=== PATIENT | female | born 1975 | race Caucasian/White ===

== ENCOUNTER → 2023-05-23 06:27 | Day surgery (SDC) | payer BC, SELFPAY | LOC: GI 06:27 | PROVIDERS: ATTENDING PHYSICIAN Internal Medicine Gastroenterology | DX: Z12.11 Encounter for screening for malignant neoplasm of colon (principal); K63.5 Polyp of colon; R10.12 Left upper quadrant pain; R63.4 Abnormal weight loss | CPT/HCPCS: 45385; 43235; 88305 ==

== ENCOUNTER → 2023-06-03 08:28 | Outpatient (REF) | payer BC, SELFPAY | LOC: HWRAD 08:28 | PROVIDERS: ATTENDING PHYSICIAN Internal Medicine Endocrinology, Diabetes & Metabolism; FAMILY PHYSICIAN Family Medicine | DX: E05.90 Thyrotoxicosis, unspecified without thyrotoxic crisis or storm (principal) | CPT/HCPCS: 76536 ==

== ENCOUNTER 2023-07-05 06:14 | Day surgery (SDC) | payer BC, SELFPAY ==
[2023-06-30 08:08] VITALS: BMI 25.3
[2023-06-30 08:58] LABS: Hematocrit 39.5 % (37.0-47.0); Hemoglobin 13.4 g/dL (12.0-16.0); Mean Corp Hgb Conc. 33.9 g/dL (33.0-37.0); Mean Corpuscular Hgb 29.6 pg (27.0-31.0); Mean Corpuscular Volume 87.4 fL (81.0-99.0); Mean Platelet Volume 9.5 fL (7.4-10.4); Platelet Count 367 10^3/uL (130-400); Red Blood Cell Count 4.52 10^6/uL (4.20-5.40); Red Cell Dist. Width 12.5 % (11.5-14.5); White Blood Cell Count 7.8 10^3/uL (4.8-10.8)
[2023-06-30 09:18] LABS: APTT 27.7 Sec (23.4-35.0); INR 1.07
[2023-06-30 09:40] LABS: ALT (SGPT) 24 U/L (0-35); AST (SGOT) 19 U/L (14-36); Albumin 4.2 g/dl (3.5-5.0); Alkaline Phosphatase 86 U/L (38-126); Blood Urea Nitrogen 14 mg/dl (7-17); Calcium 9.8 mg/dl (8.4-10.2); Carbon Dioxide 24 mmol/L (22-30); Chloride 108 mmol/L (98-107); Estimated Creatinine Clearance 95 ml/min; Glucose 96 mg/dl (70-99); Potassium 4.6 mmol/L (3.5-5.1); Sodium 138 mmol/L (135-145); Total Bilirubin 1.6 mg/dl (0.2-1.3); Total Protein 7.2 g/dl (6.3-8.2); eGFR > 60.00
[2023-07-05 08:50] VITALS: BP 124/83
[2023-07-05] MEDS: NORMOSOL-R 1000 IV (09:07)
[2023-07-05] MEDS: HEPARIN 5000 UNITS SC (09:08)
[2023-07-05] MEDS: TYLENOL 1000 MG PO (09:08)
--- NOTE | 2023-07-05 09:25 | PTCARENOTE ---
Patient verbally shared with RN that she lost her 1 year ago. Support was provided as the patient was tearful. Warm blankets and tissues were provided to the patient. RN provided patient with names and phone numbers for grief support groups
in the community. [facility] Nursery Worker was made aware. Patient thanked her nurse for the information.
[2023-07-05 11:40] VITALS: BP 124/83; BP 139/88
--- NOTE | 2023-07-05 11:55 | OR.RPT ---
Operative Report
Operative Report
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
POSTOPERATIVE DIAGNOSIS: Same
SURGEON: Greg Cheung M.D.
OPERATION: �Total Thyroidectomy - 53187
ANESTHESIA: GET
ESTIMATED BLOOD LOSS: 3 cc
DRAINS: None
SPECIMEN: �total thyroid
FINDINGS: multinodular goiter
COMPLICATIONS:�None
PROCEDURE:
The patient was taken to the operating room and placed in the usual supine position. After adequate general endotracheal anesthesia was established, the patient�s neck was extended, prepped, and draped in the typical sterile fashion. A 4 cm
transcervical incision was made two fingerbreadths above the sternal notch. The skin incision was made with the #15 blade, which was taken through the skin into the subcutaneous tissue. The underlying platysma muscle was divided, and subplatysmal
flaps were created superiorly to the thyroid cartilage and inferiorly to the sternal notch. Strap muscles were identified and at the midline.
Attention was turned to the patient�s right thyroid lobe. The right thyroid lobe was mobilized medially. During this process, the right middle thyroid vein and inferior thyroid artery were dissected and ligated with Ligasure. Next, the right
superior pole was taken down by dissecting and transecting the superior pole vessels with a Ligasure. The right thyroid lobe was mobilized medially. During this process, the right recurrent laryngeal nerve was identified and preserved throughout its
entire course. The right superior and inferior parathyroid glands were identified. The right inferior parathyroid appeared to be healthy and viable. The right superior parathyroid gland was removed during the dissection. Thus, it was minced and
autotransplant in the right SCM muscle. The right thyroid lobe with isthmus was resected off the trachea and sent to the pathology department.
Attention was turned to the patient�s left thyroid lobe. The left thyroid lobe was mobilized medially. During this process, the left middle thyroid vein and inferior thyroid artery were dissected and ligated with Ligasure. Next, the left superior
pole was taken down by dissecting and transecting the superior pole vessels with a Ligasure. The left thyroid lobe was mobilized medially. During this process, the left recurrent laryngeal nerve was identified and preserved throughout its entire
course. The left superior and inferior parathyroid glands were identified and preserved. The left thyroid lobe with isthmus was resected off the trachea and sent to the pathology department.
After obtaining adequate hemostasis, the strap muscle was approximated with #3-0 Vicryl in a running fashion, and platysma muscles were reapproximated with #3-0 Vicryl in an interrupted fashion, and the skin was approximated with #4-0 Monocryl in a
running subcuticular fashion. Steri-strips and sterile dressings were placed. The patient tolerated the procedure well. The final instrument, needle, and sponge counts were correct.
[2023-07-05] MEDS: DILAUDID 0.25 MG IV (12:14)
[2023-07-05 12:39] VITALS: BP 127/82
[2023-07-05 12:56] VITALS: BP 129/86
[2023-07-05 13:12] VITALS: BP 125/85
== END 2023-07-05 13:29 | disposition home or self-care (01) ==
LOC: SDS 06:14
PROVIDERS: ATTENDING PHYSICIAN Surgery; FAMILY PHYSICIAN Family Medicine; OTHER PHYSICIAN Internal Medicine Endocrinology, Diabetes & Metabolism
DX: E05.20 Thyrotoxicosis with toxic multinodular goiter without thyrotoxic crisis or storm (principal)
CPT/HCPCS: 60240; 88307; 88311; 36415; 80053; 85027; 85610; 85730; 93005

== ENCOUNTER 2023-08-16 06:52 | Day surgery (SDC) | payer BC, SELFPAY ==
[2023-08-16] VITALS (10 sets, daily range): BP systolic 92–128; BP diastolic 57–82; BMI 33.5
[2023-08-16] MEDS: NORMOSOL-R 1000 IV ×2 (12:22→20:54)
[2023-08-16] MEDS: Pyridium 200 MG PO (12:28)
[2023-08-16] MEDS: HEPARIN 5000 UNITS SC (13:39)
--- NOTE | 2023-08-16 17:42 | W.SUR.POST ---
Surgical Immediate Post Op
Note
Pre Op Diagnosis: Pelvic organ prolapse and stress incontinence
Post Op Diagnosis: Pelvic organ prolapse, stress incontinence and endometriosis
Procedure Performed: Robotic total hysterectomy, Bilateral salpingecotmy, sacrocolpopexy, excision of endometriosis, posterior colporrhaphy, retropubic midurethral sling, cystoscopy
Primary Surgeon: Wyatt Roca MD
Secondary Surgeons: Liss Duvall PA-C
The assistance of Liss Duvall was required due to the complexity of the procedure. During the procedure Liss Duvall assisted with retraction, resection, and closure of the wound.
Anesthesia: General with ET tube
Estimated Blood Loss: 100cc
Drains/Shunts: Willis Catheter
Specimens/Cultures: none
Doppler/Duplex/Angio (Y/N): N
Complications: None
[2023-08-16] MEDS: ZOFRAN 4 MG IV (18:00)
[2023-08-16] MEDS: DILAUDID 0.25 MG IV ×2 (18:13→18:47)
[2023-08-16] MEDS: COLACE 100 MG PO (20:53)
[2023-08-16] MEDS: TORADOL 15 MG IV (20:54)
[2023-08-16] MEDS: ROXICODONE 2.5 MG PO (22:28)
[2023-08-17] MEDS: TORADOL 15 MG IV ×2 (02:14→08:11)
[2023-08-17] MEDS: ROXICODONE 5 MG PO ×2 (02:26→09:39)
[2023-08-17 03:32] VITALS: BP 120/62
[2023-08-17] MEDS: NORMOSOL-R 1000 IV (04:21)
[2023-08-17] MEDS: SYNTHROID 88 MCG PO (05:18)
[2023-08-17 05:20] LABS: Hemoglobin 11.8 g/dL (12.0-16.0); Mean Corp Hgb Conc. 33.7 g/dL (33.0-37.0); Mean Corpuscular Hgb 30.1 pg (27.0-31.0); Mean Corpuscular Volume 89.3 fL (81.0-99.0); Mean Platelet Volume 9.4 fL (7.4-10.4); Platelet Count 323 10^3/uL (130-400); Red Blood Cell Count 3.92 10^6/uL (4.20-5.40); Red Cell Dist. Width 12.8 % (11.5-14.5)
[2023-08-17 05:45] LABS: Blood Urea Nitrogen 12 mg/dl (7-17); Carbon Dioxide 26 mmol/L (22-30); Chloride 106 mmol/L (98-107); Estimated Creatinine Clearance 99 ml/min; Potassium 4.9 mmol/L (3.5-5.1); Sodium 136 mmol/L (135-145)
--- NOTE | 2023-08-17 05:51 | PTCARENOTE ---
Pt only able to tolerate 120ml NSS when placed in celestin before removal, able to void within 10 min approx 100ML PVR for 0. Pt had small amount of vaginal bleeding overnight, pain manageable with PRN medications, resting comfortably in bed at this
time.
[2023-08-17 07:00] VITALS: BP 131/75
--- NOTE | 2023-08-17 07:45 | W.PN.GYN ---
Today's Communication / Plan
-
d/c home today
Physician Note
-
Assessment and plan:
48 yo woman POD 1 s/p robotic TLH, bilateral salpingectomy, excision of endometriosis, sacrocolpopexy, posterior repair and retropubic sling: doing well and meeting postoperative milestones.
Postoperative Care:
-hep lock iv
-regular diet
-dvt ppx: lovenox, ambulation, scds
-cbc: WNL
-bmp: WNL
-uop: adequate
-tov: patient voiding
Dispo
-d/c home
Subjective:
no acute complaints. pain well controlled. tolerating diet. ambulating to bathroom.
Objective:
Lab Results
08/17/23 04:39
08/17/23 04:39
Intake and Output
08/15/23 08/16/23 08/17/23 08/18/23
06:59 06:59 06:59 06:59
Intake Total 2059
Output Total 1799 250 / 250
Balance 260 / 10 -250 / -250
Intake:
Oral fluids 1560 / 1560
IV fluids (Total) 500 / 500
normosol 500 / 500
Output:
Urine, Willis 1800 / 1800
Urine, Voided 250 / 250
Vital Signs
Temp Pulse Resp BP Pulse Ox
97.8 F 67 17 131/75 97
08/17/23 07:00 08/17/23 07:00 08/17/23 07:00 08/17/23 07:00 08/17/23 07:00
Exam
Abdomen: soft, nondistended, nontender
Incision: clean, dry, intact
: minimal spotting on pad
[2023-08-17] MEDS: COLACE 100 MG PO (08:11)
--- NOTE | 2023-08-17 12:58 | CM ---
Patient initial assessment deferred as patient discharged prior to assesment completion. Per MD and RN, . Home with no additional skilled needs. Patient arranged for transport home.
== END 2023-08-17 10:30 | disposition home or self-care (01) ==
LOC: SDS 06:52
PROVIDERS: ATTENDING PHYSICIAN Obstetrics & Gynecology
DX: N81.2 Incomplete uterovaginal prolapse (principal); N39.3 Stress incontinence (female) (male); N80.00 Endometriosis of the uterus, unspecified; D25.9 Leiomyoma of uterus, unspecified
CPT/HCPCS: 57425; 58571; 57250; 57288; 58662; 88305; 80051; 82565; 84520; 85027; 86850; 86900; 86901; 88341; 88342; 88360; C1763; C1771

== ENCOUNTER 2023-09-21 13:36 | Emergency (ER) | payer BC, SELFPAY ==
[2023-09-21 13:39] VITALS: BP 133/80
[2023-09-21 13:41] LABS: Glucose - Point of Care 140 mg/dl (70-99)
[2023-09-21 14:53] VITALS: BMI 24.9
[2023-09-21 15:12] LABS: % Basophils 0.4 % (0-2); % Eosinophils 2.5 % (0-6); % Immature Granulocytes 0.3 % (0-0.5); % Lymphocytes 31.4 % (20.5-51.1); % Monocytes 8.2 % (1.7-9.3); % Neutrophils 57.2 % (42.2-75.2); Absolute Eosinophils 0.2 10^3/uL (0-0.7); Absolute Lymphocytes 2.2 10^3/uL (1.2-3.4); Absolute Monocytes 0.6 10^3/uL (0.1-0.6); Absolute Neutrophils 4.1 10^3/uL (1.4-6.5); Hematocrit 38.5 % (37.0-47.0); Mean Corp Hgb Conc. 33.8 g/dL (33.0-37.0); Mean Corpuscular Hgb 29.7 pg (27.0-31.0); Mean Corpuscular Volume 87.9 fL (81.0-99.0); Mean Platelet Volume 9.4 fL (7.4-10.4); Nucleated Red Blood Cells % 0 %; Platelet Count 317 10^3/uL (130-400); Red Blood Cell Count 4.38 10^6/uL (4.20-5.40); Red Cell Dist. Width 12.2 % (11.5-14.5); White Blood Cell Count 7.1 10^3/uL (4.8-10.8)
[2023-09-21 15:28] LABS: ALT (SGPT) 13 U/L (0-35); AST (SGOT) 15 U/L (14-36); Alkaline Phosphatase 76 U/L (38-126); Blood Urea Nitrogen 12 mg/dl (7-17); Calcium 9.8 mg/dl (8.4-10.2); Carbon Dioxide 28 mmol/L (22-30); Chloride 109 mmol/L (98-107); Estimated Creatinine Clearance 95 ml/min; Glucose 92 mg/dl (70-99); Potassium 4.1 mmol/L (3.5-5.1); Sodium 144 mmol/L (135-145); Total Bilirubin 1.2 mg/dl (0.2-1.3); eGFR > 60.00
--- NOTE | 2023-09-21 16:34 | ED.GENMED ---
History of Present Illness
General
Chief Complaint: Numbness
Source: patient
Exam Limitations: none
Time Seen by Provider: 09/21/23 14:07
Travel History
Have you had any contact with someone who has COVID-19?: No
Do you have any symptoms of coronavirus? Fever > 100 degrees, chills, cough, shortness of breath, sore throat, loss of taste or smell, muscle aches, or headache?: No
History of Present Illness
History of Present Illness:
48-year-old female presents with tingling in her legs from just above her knee down to her toes. She has had some tingling around her knees but now seems more constant and a little bit more diffuse. No motor weakness. Denies vomiting. No skin
discoloration. Patient did recently have a hysterectomy and bladder sling. No fevers. No abdominal pain. No bowel or bladder incontinence or urinary changes. She actually states little bit more difficult to urinate because of the bladder sling
but was told active by her surgeon
Past History
Past History
ED Past Medical History: Other (Pancreatitis, pancreatitis, previous smoker)
ED Past Surgical History: Cholecystectomy and Gynecological
Social History
Tobacco: Former smoker
Alcohol: None
Drug: None
Personal:
Living: with family
Employment: Not employed
Family History
Family History: Other
Phy Exam
Physical Exam
Physical Exam:
CONSTITUTIONAL Patient alert and oriented to person, place and time. Well-appearing. Vital signs reviewed.
HEAD atraumatic, normocephalic.
EYES eyelids normal to inspection, Pupils equally round and reactive to light, Extraocular muscles intact, Conjunctiva normal, Sclera normal.
NECK normal range of motion, Trachea midline, no jugular venous distention.
RESPIRATORY CHEST No respiratory distress noted, Chest expansion equal, Bilateral breath sounds clear.
CARDIOVASCULAR regular rate and rhythm, Heart sounds normal.
ABDOMEN abdomen nontender, Bowel sounds normal. No distention.
BACK normal inspection, no obvious deformities
UPPER EXTREMITY range of motion normal, Motor strength normal, no cyanosis, no edema.
LOWER EXTREMITY range of motion normal, Motor strength normal, no cyanosis, no edema. Normal bilateral DP pulses. Normal bilateral PT pulses. Normal [id number]. No motor weakness. Skin is normal. Gross touch normal
NEURO Speech normal, No focal motor deficits, Clint coma scale 15, Memory normal, Cranial Nerves intact to screening exam.
SKIN skin warm, dry, and normal in color.
PSYCHIATRIC patient oriented to person place and time, Normal affect.
Course
Orders/Labs/Results
Orders:
Orders
09/21/23 14:43
Complete Blood Count/With Diff Urgent
Comprehensive Metabolic Panel Urgent
Abnormal Lab Results
09/21/23 09/21/23
13:40 14:43
Chloride 109 H mmol/L
(98-107)
POC Glucose 140 H mg/dl
(70-99)
09/21/23 14:43
09/21/23 14:43
Vital Signs
Initial and Last Documented VS:
Initial Vital Signs
Temp Pulse Resp BP Pulse Ox
98.3 F 75 18 133/80 97
09/21/23 13:39 09/21/23 13:39 09/21/23 13:39 09/21/23 13:39 09/21/23 13:39
Last Documented Vital Signs
Temp Pulse Resp BP Pulse Ox
98.3 F 75 18 133/80 97
09/21/23 13:39 09/21/23 13:39 09/21/23 13:39 09/21/23 13:39 09/21/23 13:39
MDM/Problems Addressed
MDM/Problems Addressed:
Sensory changes
*Pulse Oximetry
Patient hypoxic: no
*Critical Care Note
Total Time (30-74mins, 75-104mins- exclusive of procedures): Not Applicable
Data Reviewed
Source: patient
Further Testing Considered But Not Given:
Consider head CT but symptoms are bilateral and only in the lower extremities.
Patient Management
Escalation/DeEscalation of care consider admission/obs:
Patient is had sensory change for some time and has progressed. Certainly there is some concern and worry that MS is still on the differential diagnosis. Her labs are normal. No indication for ED imaging but will need outpatient MRI of the brain
and possibly spine. Okay for discharge outpatient follow with neurology
ED Attending Note
-
Portions of this chart may have been created with voice recognition software.� Occasional wrong word or��sound alike� substitutions may have occurred due to the inherent limitations of voice recognition software.
Discharge Plan
Departure
Patient Disposition: Home (Routine Discharge)
Date of Disposition: 09/21/23
Time of Disposition: 16:38
Patient with high blood pressure during this ER visit?: No
Discharge Problem:
Tingling in extremities
Instructions: Paresthesia (DC)
Prescriptions:
No Action
lorazepam [Ativan] 0.5 mg Tablet
0.5 mg PO PRN PRN (Reason: anxiety)
ibuprofen [Advil] 200 mg Tablet
400 mg PO PRN PRN (Reason: pain)
levothyroxine 88 mcg Tablet
88 mcg PO DAILY
Ginkoba
1 tab PO DAILY
Nutrifol
1 tab PO DAILY
Vitamin D3
1 tab PO DAILY
acetaminophen 325 mg Tablet
650 mg PO SDS-Q4HPRN PRN (Reason: mild pain) Qty: 60 0RF
docusate sodium 100 mg Capsule
100 mg PO BID Qty: 60 0RF
simethicone 80 mg Tablet,Chewable
80 mg PO Q6HPRN PRN (Reason: gas distention) Qty: 20 0RF
oxycodone 5 mg Tablet
5 mg PO SDS-Q4HPRN PRN (Reason: moderate pain) Qty: 10 0RF
Referrals:
Michela Alvarez DO [Active] -
Albaro Short Jr., [Family Provider] -
Activity Restrictions/Additional Instructions:
Please see your doctor and neurology in the next 1 week for follow-up and reevaluation. Further testing should include an MRI of your brain and possibly an MRI of your spine. Return immediately for worsening symptoms, motor weakness, fevers or any
other concerns.
Interventions
Interventions:
*Risk Screen - Suicide Last Done: 09/21/23 13:39
*General Assessment Last Done: 09/21/23 13:39
*Neglect/Abuse Screening Last Done: 09/21/23 13:39
ED- Fall Risk Assessment Last Done: 09/21/23 14:54
*ED COVID-19 Vaccine History Last Done: 09/21/23 14:54
ED- Neurological Assessment Last Done: 09/21/23 14:54
Discharge Date and Time
Print Language: ARGENTINE
[2023-09-21 17:41] VITALS: BP 131/78
== END 2023-09-21 17:45 | disposition home or self-care (01) ==
LOC: EMR 13:36
PROVIDERS: EMERGENCY PHYSICIAN Emergency Medicine; FAMILY PHYSICIAN Family Medicine
DX: R20.2 Paresthesia of skin (principal); Z87.891 Personal history of nicotine dependence
CPT/HCPCS: 99283; 80053; 82962; 85025

== ENCOUNTER 2023-09-23 00:39 | Emergency (ER) | payer BC, SELFPAY ==
[2023-09-23 00:43] VITALS: BP 147/93
[2023-09-23 01:12] VITALS: BP 124/81
[2023-09-23 01:13] VITALS: BMI 24.7
--- NOTE | 2023-09-23 01:42 | ED.GENMED ---
History of Present Illness
General
Chief Complaint: Numbness
Source: patient
Exam Limitations: none
Time Seen by Provider: 09/23/23 01:23
Travel History
Have you had any contact with someone who has COVID-19?: No
Do you have any symptoms of coronavirus? Fever > 100 degrees, chills, cough, shortness of breath, sore throat, loss of taste or smell, muscle aches, or headache?: No
History of Present Illness
History of Present Illness:
See MDM
Past History
Past History
ED Past Medical History: Other (Pancreatitis, pancreatitis, previous smoker)
ED Past Surgical History: Cholecystectomy and Gynecological
Social History
Tobacco: Former smoker
Alcohol: None
Drug: None
Personal:
Living: with family
Employment: Not employed
Family History
Family History: Other
Phy Exam
Physical Exam
Physical Exam:
See MDM
Course
Orders/Labs/Results
Orders:
Orders
09/23/23 01:42
CT Head W/o Iv Contrast Urgent
Comment:
Reason For Exam: Generalized numbness and tingling
Lorazepam [Ativan] 1 mg PO NOW STA
Vital Signs
Initial and Last Documented VS:
Initial Vital Signs
Temp Pulse Resp BP Pulse Ox
99.7 F 77 16 147/93 97
09/23/23 00:43 09/23/23 00:43 09/23/23 00:43 09/23/23 00:43 09/23/23 00:43
Last Documented Vital Signs
Temp Pulse Resp BP Pulse Ox
99.7 F 77 16 128/84 99
09/23/23 00:43 09/23/23 00:43 09/23/23 00:43 09/23/23 02:00 09/23/23 02:30
MDM/Problems Addressed
Differential Diagnosis Includes:
HPI and MDM Narrative:
48-year-old female presenting back to the emergency department with tingling in her upper extremities. She was seen yesterday for tingling in both legs. She had a negative workup which included blood work. Patient came back because she is now
noticing it in her upper extremities. She had the sensation that she could not breathe and that she was having chest pain. The chest pain got better when she walked around and the sensation of trouble breathing is improving as well
We had a long discussion about mental health. Patient is very open and accepting of this being a diagnostic possibility. She was afraid to take her Ativan at home because she thought she would stop breathing. Since this is a controlled setting,
will give a dose of Ativan. Will obtain CT head but discussed outpatient MRI is better to rule out alternative diagnosis such as MS. However, discussed talking her doctor about mental health first
Physical exam
General: Well appearing and non-toxic
HEENT: protecting airway. Posterior pharynx clear
Neck: appears supple
CV: No evidence of cyanosis
Resp: No accessory muscle use. Lungs clear
Abd: Non-distended
Extremities: No deformities stable
Neuro: alert. Sensation grossly intact all 4 extremities
Psych: Normal affect
Skin: Intact
Problems Addressed including Acute and Chronic Conditions affecting care:
1. Paresthesias
Acuity: acute
Prognosis: stable
Details: Likely in the setting of mental health. Blood work done yesterday within normal limits. Obtain CT head. Will give dose of Ativan
Updates
CT head negative. Patient feeling better. Discussed return precautions
Differential Diagnosis (but not limited to): Multiple sclerosis, anxiety, hyperventilation syndrome
Testing considered: Brain MRI but discussed better performed in the outpatient setting
Drug therapy (if applicable): OTC meds, please see d/c instruction regarding Rx drugs
Amount and/or Complexity of Data Reviewed
Clinical info obtained from: Patient
External data reviewed: N/A
Labs I independently reviewed (but not limited to): N/A
Radiology: The CT scan was personally and independently reviewed. In addition, official CT report reviewed.
Pulse Ox: not hypoxic
EKG independently reviewed: N/A
Model Maker Apprentice: N/A
Critical Care: N/A
Risk of Complication:
Social Determinants of health: Good social support
Discussed with other providers: N/A
Escalation of Care includes Admit/Obs: After being observed in the Emergency Department, pt stable for discharge.
Occasional wrong word or 'sound a like' substitutions may have occurred due to the inherent limitations of voice recognition software. Read the chart carefully and recognize, using context, where substitutions have occurred.
*Critical Care Note
Total Time (30-74mins, 75-104mins- exclusive of procedures): Not Applicable
ED Attending Note
-
Portions of this chart may have been created with voice recognition software.� Occasional wrong word or��sound alike� substitutions may have occurred due to the inherent limitations of voice recognition software.
Discharge Plan
Departure
Patient Disposition: Home (Routine Discharge)
Date of Disposition: 09/23/23
Time of Disposition: 02:48
Patient with high blood pressure during this ER visit?: No
Discharge Problem:
Paresthesia
Instructions: Paresthesia (DC)
Prescriptions:
No Action
lorazepam [Ativan] 0.5 mg Tablet
0.5 mg PO PRN PRN (Reason: anxiety)
ibuprofen [Advil] 200 mg Tablet
400 mg PO PRN PRN (Reason: pain)
levothyroxine 88 mcg Tablet
88 mcg PO DAILY
Ginkoba
1 tab PO DAILY
Nutrifol
1 tab PO DAILY
Vitamin D3
1 tab PO DAILY
acetaminophen 325 mg Tablet
650 mg PO SDS-Q4HPRN PRN (Reason: mild pain) Qty: 60 0RF
docusate sodium 100 mg Capsule
100 mg PO BID Qty: 60 0RF
simethicone 80 mg Tablet,Chewable
80 mg PO Q6HPRN PRN (Reason: gas distention) Qty: 20 0RF
oxycodone 5 mg Tablet
5 mg PO SDS-Q4HPRN PRN (Reason: moderate pain) Qty: 10 0RF
Referrals:
Albaro hSort Jr., DO [Family Provider] -
Activity Restrictions/Additional Instructions:
Please return for any worsening symptoms.
You may return at any time if you have further concerns.
Please follow up with your doctor at the first available appointment, preferably this week. Please discuss outpatient MRI if symptoms persist.
Thank you for choosing [facility].
Interventions
Interventions:
*Risk Screen - Suicide Last Done: 09/23/23 00:43
*General Assessment Last Done: 09/23/23 01:14
*Neglect/Abuse Screening Last Done: 09/23/23 00:43
ED- Fall Risk Assessment Last Done: 09/23/23 01:14
*ED COVID-19 Vaccine History Last Done: 09/23/23 00:43
ED- Neurological Assessment Last Done: 09/23/23 01:14
Discharge Date and Time
Print Language: MARSHALLESE
[2023-09-23] MEDS: ATIVAN 1 MG PO (01:46)
[2023-09-23 02:00] VITALS: BP 128/84
== END 2023-09-23 02:56 | disposition home or self-care (01) ==
LOC: EMR 00:39
PROVIDERS: EMERGENCY PHYSICIAN Student in an Organized Health Care Education/Training Program; FAMILY PHYSICIAN Family Medicine
DX: R20.2 Paresthesia of skin (principal)
CPT/HCPCS: 99284; 70450

== ENCOUNTER 2024-08-16 21:58 | Emergency (ER) | payer BC, SELFPAY ==
[2024-08-16 22:02] VITALS: BP 129/89
[2024-08-16 22:18] LABS: % Basophils 0.6 % (0-2); % Eosinophils 4.1 % (0-6); % Immature Granulocytes 0.2 % (0-0.5); % Lymphocytes 31.5 % (20.5-51.1); % Monocytes 7.9 % (1.7-9.3); % Neutrophils 55.7 % (42.2-75.2); Absolute Basophils 0.1 10^3/uL (0-0.2); Absolute Eosinophils 0.4 10^3/uL (0-0.7); Absolute Lymphocytes 2.7 10^3/uL (1.2-3.4); Absolute Monocytes 0.7 10^3/uL (0.1-0.6); Absolute Neutrophils 4.9 10^3/uL (1.4-6.5); Hematocrit 38.6 % (37.0-47.0); Hemoglobin 13.1 g/dL (12.0-16.0); Mean Corp Hgb Conc. 33.9 g/dL (33.0-37.0); Mean Corpuscular Volume 88.3 fL (81.0-99.0); Mean Platelet Volume 8.8 fL (7.4-10.4); Nucleated Red Blood Cells % 0 %; Platelet Count 367 10^3/uL (130-400); Red Blood Cell Count 4.37 10^6/uL (4.20-5.40); Red Cell Dist. Width 12.2 % (11.5-14.5); White Blood Cell Count 8.7 10^3/uL (4.8-10.8)
[2024-08-16 22:35] LABS: ALT (SGPT) 20 U/L (0-35); AST (SGOT) 21 U/L (14-36); Albumin 3.9 g/dl (3.5-5.0); Alkaline Phosphatase 93 U/L (38-126); Blood Urea Nitrogen 21 mg/dl (7-17); Calcium 9.6 mg/dl (8.4-10.2); Carbon Dioxide 30 mmol/L (22-30); Chloride 105 mmol/L (98-107); Glucose 105 mg/dl (70-99); Lipase 93 U/L (23-300); Potassium 4.5 mmol/L (3.5-5.1); Sodium 141 mmol/L (135-145); Total Bilirubin 0.5 mg/dl (0.2-1.3); Total Protein 6.9 g/dl (6.3-8.2); eGFR > 60.00
[2024-08-16 23:51] VITALS: BP 131/80
[2024-08-17] VITALS: BP 124/90
[2024-08-17 01:00] VITALS: BP 126/80
[2024-08-17 01:11] LABS: Urine Albumin Negative (Neg - Trace); Urine Bilirubin Negative (Negative); Urine Character Slightly Cloudy (Clear); Urine Color Yellow; Urine Glucose Negative (Negative); Urine Ketone Negative (Negative); Urine Leukocyte Negative (Negative); Urine Nitrite Negative (Negative); Urine Occult Blood Negative (Negative); Urine Urobilinogen Negative (Neg - 1+)
[2024-08-17 02:00] VITALS: BP 127/89
[2024-08-17] MEDS: ZOFRAN ODT (ORALLY DISINTEGRATING) 4 MG PO (02:43)
[2024-08-17] MEDS: PEPCID 40 MG PO (02:44)
[2024-08-17] MEDS: MAALOX 40 PO (02:44)
--- NOTE | 2024-08-17 02:45 | ED.GENMED ---
History of Present Illness
General
Chief Complaint: Abdominal Pain
Source: patient
Exam Limitations: none
Time Seen by Provider: 08/16/24 23:04
Nursing documentation reviewed up to this point in time: agreed with
History of Present Illness
History of Present Illness:
49-year-old female presenting to the emergency department with concerns of upper abdominal pain. History of pancreatitis and previous gallbladder sludge. Has been intermittent over the past few days. Denies any vomiting chest pain or shortness of
breath. Denies diarrhea. Has had recent endoscopies colonoscopies without any findings.
Past History
Past History
ED Past Medical History: Other (Pancreatitis, pancreatitis, previous smoker)
ED Past Surgical History: Cholecystectomy and Gynecological
Social History
Tobacco: Former smoker
Alcohol: None
Drug: None
Personal:
Living: with family
Employment: Not employed
Family History
Family History: Other
Review of Systems
Review of Systems
Allergies reviewed?: Yes
All Other Systems: ROS reviewed and negative except as documented in HPI and ROS
Phy Exam
Physical Exam
Physical Exam:
GENERAL: Alert , in no apparent distress
EYE: pupils equal and reactive
NECK: Supple, no significant adenopathy.
ENT: o/p clr, mmm.
CARDIAC: Regular rate and rhythm .
LUNGS: Clear breath sounds bilaterally, no acute respiratory distress, no wheezes/rales/rhonchi
ABDOMEN: Vague discomfort to the upper abdomen in the epigastric region no specific right upper quadrant left upper quadrant abdominal pain no pain to the lower soft, without focal tenderness, no r/g, no cvat
NEUROLOGICAL: Alert and oriented, no focal neuro deficits
SKIN: Warm and dry, skin intact.
MUSCULOSKELETAL: No edema, well perfused.
PSYCH: Normal and appropriate interaction.
Course
Orders/Labs/Results
Orders:
Orders
08/16/24 22:09
Complete Blood Count/With Diff Urgent
Comprehensive Metabolic Panel Urgent
Lipase Urgent
08/17/24 00:07
US Abdomen Complete/Upper Urgent
Comment:
Reason For Exam: upper abdominal pain, hx of biliary ductal issues
08/17/24 00:54
Urinalysis Reflex To Culture Urgent
Date Specimen was Collected: 08/17/24
Time Specimen was Collected: 00:43
08/17/24 02:32
EKG [Electrocardiogram (*1)] Urgent
Reason for Study: Abdominal Pain
Famotidine [Pepcid] 40 mg PO NOW STA
Mag Hydrox/Al Hydrox/Simeth [Maalox] 30 ml Phenobarb/Hyoscy/Atropine/Scop [] 10 ml PO NOW
Ondansetron Orally Disint [Zofran Odt (Orally Disintegrating)] 4 mg PO NOW STA
08/17/24 02:33
EKG [Electrocardiogram (*1)] Urgent
Reason for Study: Abdominal Pain
EKG- Treatment ONCE
08/17/24 02:41
Mag Hydrox/Al Hydrox/Simeth [Maalox] 30 ml .ROUTE .STK-MED ONE
Phenobarb/Hyoscy/Atropine/Scop [] 10 ml .ROUTE .STK-MED ONE
Abnormal Lab Results
08/16/24
22:09
Absolute Monos (auto) 0.7 H 10^3/uL
(0.1-0.6)
BUN 21 H mg/dl
(7-17)
Glucose 105 H mg/dl
(70-99)
08/16/24 22:09
08/16/24 22:09
Vital Signs
Initial and Last Documented VS:
Initial Vital Signs
Temp Pulse Resp BP Pulse Ox
98.5 F 81 18 129/89 98
08/16/24 22:02 08/16/24 22:02 08/16/24 22:02 08/16/24 22:02 08/16/24 22:02
Last Documented Vital Signs
Temp Pulse Resp BP Pulse Ox
98.5 F 76 19 127/89 96
08/16/24 22:02 08/16/24 23:51 08/17/24 02:02 08/17/24 02:00 08/17/24 02:02
MDM/Problems Addressed
MDM/Problems Addressed:
49-year-old female presenting to the emergency department today for concerns of upper abdominal pain over the past few days intermittent ongoing here. Vital signs normal on arrival labs unremarkable normal bilirubin normal liver function test
normal lipase normal urinalysis. Ultrasound without emergent findings. Patient in no distress here. No evidence of any emergent pathology EKG is normal cardiac etiology very unlikely. Given medications for symptoms otherwise we will follow-up
closely with GI. Return precautions given
*Critical Care Note
Total Time (30-74mins, 75-104mins- exclusive of procedures): Not Applicable
ED Attending Note
-
Portions of this chart may have been created with voice recognition software.� Occasional wrong word or��sound alike� substitutions may have occurred due to the inherent limitations of voice recognition software.
Discharge Plan
Departure
Patient Disposition: Home (Routine Discharge)
Date of Disposition: 08/17/24
Time of Disposition: 02:46
Patient with high blood pressure during this ER visit?: No
Condition: Good
Covid-19: Not Applicable
Discharge Problem:
Acute upper abdominal pain
Instructions: Abdominal Pain
Prescriptions:
No Action
lorazepam [Ativan] 0.5 mg Tablet
0.5 mg PO PRN PRN (Reason: anxiety)
ibuprofen [Advil] 200 mg Tablet
400 mg PO PRN PRN (Reason: pain)
levothyroxine 88 mcg Tablet
88 mcg PO DAILY
Ginkoba
1 tab PO DAILY
Nutrifol
1 tab PO DAILY
Vitamin D3
1 tab PO DAILY
acetaminophen 325 mg Tablet
650 mg PO SDS-Q4HPRN PRN (Reason: mild pain) Qty: 60 0RF
docusate sodium 100 mg Capsule
100 mg PO BID Qty: 60 0RF
simethicone 80 mg Tablet,Chewable
80 mg PO Q6HPRN PRN (Reason: gas distention) Qty: 20 0RF
oxycodone 5 mg Tablet
5 mg PO SDS-Q4HPRN PRN (Reason: moderate pain) Qty: 10 0RF
Referrals:
UNKNOWN - PT NOT,INTERVIEWE [Family Provider] -
Activity Restrictions/Additional Instructions:
You came to the emergency department today with concerns of upper abdominal pain. Here you have a reassuring assessment with normal labs and ultrasound. Please follow closely with GI. Return for any worsening, new or concerning symptoms.
Interventions
Interventions:
*Risk Screen - Suicide Last Done: 08/16/24 22:02
*General Assessment Last Done: 08/16/24 22:02
*Neglect/Abuse Screening Last Done: 08/16/24 22:02
*ED- Fall Risk Assessment Last Done: 08/16/24 22:02
*ED COVID-19 Vaccine History Last Done: 08/16/24 22:02
NU-Zdwlsq-Gqbqydwbkr Assessment Last Done: 08/16/24 23:49
Discharge Date and Time
Print Language: SYRIAC
[2024-08-17 03:01] VITALS: BP 135/85
== END 2024-08-17 03:02 | disposition home or self-care (01) ==
LOC: EMR 21:58
PROVIDERS: Emergency Medicine; Physician Assistant; EMERGENCY PHYSICIAN Student in an Organized Health Care Education/Training Program
DX: R10.10 Upper abdominal pain, unspecified (principal); Z87.19 Personal history of other diseases of the digestive system; Z87.891 Personal history of nicotine dependence; Z90.49 Acquired absence of other specified parts of digestive tract
CPT/HCPCS: 99284; 76700; 80053; 81003; 83690; 85025; 93005